=== PATIENT | female | born 1970 | race Hispanic/Latino ===

== ENCOUNTER → 2018-06-02 | Day surgery (SDC) | payer BC ==
[2018-05-30 15:58] LABS: BASOPHILS % 0.4 % (0.0-1.0); EOSINOPHILS # (AUTO) 0.2 (0.0-0.4); EOSINOPHILS % 2.2 % (0.0-6.0); HEMATOCRIT 38.2 % (34.2-44.1); HEMOGLOBIN 12.5 g/dL (12.0-16.0); LYMPHOCYTES # (AUTO) 2.2 (1.0-3.2); LYMPHOCYTES % 32.8 % (18.0-39.1); MEAN CORPUSCULAR HEMOGLOBIN 30.6 pg (28-32); MEAN CORPUSCULAR HGB CONC 32.7 g/dL (31-35); MEAN CORPUSCULAR VOLUME 93.4 fL (81-99); MONOCYTES # (AUTO) 0.5 (0.2-0.8); MONOCYTES % 7.9 % (4.4-11.3); NEUTROPHILS # (AUTO) 3.8 (2.1-6.9); NEUTROPHILS % 56.3 % (38.7-80.0); PLATELET COUNT 255 x10e3/uL (140-360); RED BLOOD COUNT 4.09 x10e6/uL (3.6-5.1); RED CELL DISTRIBUTION WIDTH 13.9 % (11.7-14.4)
[2018-05-30 16:21] LABS: ALBUMIN 3.9 g/dL (3.5-5.0); ALBUMIN/GLOBULIN RATIO 1.2 (0.8-2.0); ANION GAP 13.6 mmol/L (8-16); CALCIUM 9.3 mg/dL (8.4-10.2); CREATININE, SERUM 1.01 mg/dL (0.57-1.11); POTASSIUM 4.6 mmol/L (3.5-5.1)
[~2018-06-02] MED LIST: BUPIVACAINE 0.25%/EPI 30ML SDV INJ ONE; CEFAZOLIN SOD 1 GM VIAL ONE; DEXAMETHASONE SOD PHOS INJ 4 MG/ML VIAL ONE; FENTANYL CITRATE/PF 100MCG/2 ML INJ ONE; GLYCOPYRROLATE INJ 1MG/ 5 ML SYR ONE; HYDROCODONE/APAP 7.5MG-325MG 1 EA TAB ONE; KETOROLAC TROMETHAMINE 30 MG/ML VIAL ONE; LIDOCAINE HCL 2% LOCAL INJ 5 ML SDV VIAL INJ ONE; MIDAZOLAM HCL 2 MG/2 ML VIAL ONE; NEOSTIGMINE 5 MG/5ML SYR ONE; ONDANSETRON HCL INJ 2 MG/ML VIAL ONE; PROPOFOL IV EMULSION 10 MG/ML 20 ML VIAL ONE; ROCURONIUM BROMIDE 10 MG/ML 5ML VIAL ONE; SEVOFLURANE INHAL SOLN 250 ML PEN BTL ONE; ZANTAC150 MG PO
[2018-06-02 12:45] VITALS: BP 115/72
--- NOTE | 2018-06-02 14:04 | Operative Report ---
DATE OF PROCEDURE: June 02, 2018 PREOPERATIVE DIAGNOSES 1. Cholelithiasis. 2. Chronic cholecystitis. POSTOPERATIVE DIAGNOSES 1. Cholelithiasis. 2. Chronic cholecystitis. PROCEDURE PERFORMED: Laparoscopic cholecystectomy. ANESTHESIA: General endotracheal. ESTIMATED BLOOD LOSS: Minimal. DRAINS: None. COMPLICATIONS: None. INDICATIONS AND FINDINGS: The patient is a 48-year-old female with longstanding history of dyspeptic symptoms, developed recently right upper epigastric pain. Ultrasound revealed gallstones. Liver chemistries were normal. There was no history of jaundice. INTRAOPERATIVE FINDINGS: Cholelithiasis, chronic cholecystitis. No ductal dilatation. There was a large single stone about 2 cm. DESCRIPTION OF THE PROCEDURE: With the patient lying on the operative table in the supine position after administration of general endotracheal anesthesia, she was prepped and draped for laparoscopic cholecystectomy. The procedure was begun by establishing a pneumoperitoneum in the right upper quadrant midclavicular line because of previous tubal ligation and pneumoperitoneum was insufflated after the saline drop test was performed to 50 mm of pressure and then the 5 mm trocar placed in that location. The camera introduced. The umbilical site was free of adhesions. There were some adhesions in the right lower quadrant and omentum. We placed a 10/11 trocar in the umbilical site and then placed the 10 mm camera in that location, rotated the patient to the left with the head up and then we placed the 10 mm subxiphoid port and finally a right anterior axillary line trocar. The gallbladder was then retracted cephalad using grasping forceps through the two 5 mm trocars and then adhesions of the omentum to the gallbladder were sharply lysed exposing the cystic duct. There was a large stone in the neck of the gallbladder that had to be milked or abort. At this point, we encountered some fibrosis and adhesions in the area of the hepatoduodenal ligament. We had to clip 2 cystic duct arteries proximally and distally that were attached to the cystic duct and then we finally identified both anterior and posterior cystic arteries that were individually clipped with titanium clips also and then transected. Then, we did remove the gallbladder from the liver bed using electrocautery dissection. Then, we placed the gallbladder in an Endo bag and removed it through the umbilical port. We had to enlarge the umbilical incision because of the size of the stone. After we did that, we inspected the operative field, irrigated the right upper quadrant. There was no bile leak, no bleeding, no apparent bowel injury and then at this point, we went ahead and closed umbilical fascia using two of 0 Vicryl and then we closed the subcutaneous tissue using 3-0 Vicryl and then the skin above the port was closed using 5-0 subcuticular Vicryl. A 0.25% Marcaine with epinephrine was given as a local block at the end of the case. The patient tolerated the procedure well, taken to the recovery room in stable condition. Job#: [id number]
== END | disposition home or self-care (01) ==
LOC: OR 07:04
PROVIDERS: ATTEND Surgery
DX: K80.10 Calculus of gallbladder with chronic cholecystitis without obstruction (principal); K74.0 Hepatic fibrosis; Z01.810 Encounter for preprocedural cardiovascular examination; Z01.812 Encounter for preprocedural laboratory examination; Z87.891 Personal history of nicotine dependence
CPT/HCPCS: 36415; 47562; 80053; 81025; 85025; 88304; 93005; C1766; J0690; J1100; J1885; J2001; J2250; J2405; J3490

== ENCOUNTER → 2019-09-07 | Outpatient (CLI) | payer BC ==
[~2019-09-07] MED LIST changes: -BUPIVACAINE 0.25%/EPI 30ML SDV INJ ONE; -CEFAZOLIN SOD 1 GM VIAL ONE; -DEXAMETHASONE SOD PHOS INJ 4 MG/ML VIAL ONE; -FENTANYL CITRATE/PF 100MCG/2 ML INJ ONE; -GLYCOPYRROLATE INJ 1MG/ 5 ML SYR ONE; -HYDROCODONE/APAP 7.5MG-325MG 1 EA TAB ONE; -KETOROLAC TROMETHAMINE 30 MG/ML VIAL ONE; -LIDOCAINE HCL 2% LOCAL INJ 5 ML SDV VIAL INJ ONE; -MIDAZOLAM HCL 2 MG/2 ML VIAL ONE; -NEOSTIGMINE 5 MG/5ML SYR ONE; -ONDANSETRON HCL INJ 2 MG/ML VIAL ONE; -PROPOFOL IV EMULSION 10 MG/ML 20 ML VIAL ONE; -ROCURONIUM BROMIDE 10 MG/ML 5ML VIAL ONE; -SEVOFLURANE INHAL SOLN 250 ML PEN BTL ONE
== END ==
LOC: MAMMO 08:15
PROVIDERS: ATTEND Family Medicine
DX: Z12.31 Encounter for screening mammogram for malignant neoplasm of breast (principal)
CPT/HCPCS: 77067

== ENCOUNTER → 2021-04-17 | Outpatient (CLI) | payer BC | LOC: MAMMO 11:29 | PROVIDERS: ATTEND Family Medicine | DX: Z12.31 Encounter for screening mammogram for malignant neoplasm of breast (principal) | CPT/HCPCS: 77067 ==